=== PATIENT | male | born 1945 | race Caucasian/White ===

== ENCOUNTER → 2017-04-13 | Outpatient (CLI) | payer MEDICARE, OTHER ==
[~2017-04-13] MED LIST: ECOTRIN325 MG PO; LEVOTHROID(SYN75 MCG PO; LOPRESSOR50 MG PO
== END | disposition disaster alternative care site (69) ==
LOC: GRAD 10:11
DX: R13.19 Other dysphagia (principal)
CPT/HCPCS: G8996; G8997; G8998

== ENCOUNTER 2017-04-16 09:23 | Inpatient (IN) | payer MEDICARE, OTHER ==
[~2017-04-16] VITALS: Ht 180.3 cm; Wt 82.8 kg
--- NOTE | ~2017-04-16 | CON ---
PATIENT'S NAME: TARA SANCHEZ [facility] AGE: 71 Y [address] ROOM: [place] [address] LOCATION: GICU ADMIT DATE: 04/16/2017 Consultation DISCHARGE DATE: FAMILY PHYSICIAN: Glenn Mccoy MD ATTENDING PHYSICIAN: Bro PRICE REFERRING PHYSICIAN: Torito MEDEIROS MD Consult for Dr. Medeiros, hospitalist. HISTORY OF PRESENT ILLNESS: This pleasant 71-year-old gentleman is referred for rehab evaluation, admitted on 04/16/2017, reportedly was unresponsive and was airlifted to [facility] after CPR with aspiration and aspiration pneumonia. He has had history of laryngeal laceration with dysfunctional larynx, status post laryngeal cancer. He is also status post tracheostomy on 04/16/2017 and also has had a bronchoscopy on 04/16/2017 with flexible bronchoscopy. He also has recent PEG tube placement. Diabetes type 2. Hypertension. 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 At the present time, he is alert. Fairly able to follow instructions without difficulty. Multiple stage of instructions and at the present time he is in intensive care unit and not in acute distress. Able to interact well. VITAL SIGNS: Blood pressure 153/75, temperature 98.3, pulse 93, respirations 20. He is 5 feet and 11 inches and weighs 102.5 kg. Cranial nerves II through XII are within normal limits. Cannot talk. He is able to comprehend very well and to the point, is using also oxygen per nasal cannula at the present time. He seemingly is slightly weaker on the right side, especially right upper extremity in comparison to the left; however, he is otherwise comfortable with a Denny catheter. Deep tendon reflexes are present and equal throughout. He is on the following medication, 1. Lovenox. 2. Prevacid. 3. Synthroid. 4. Dobutrex. PATIENT'S NAME: TARA SANCHEZ [facility] AGE: 71 Y [address] ROOM: [place] [address] LOCATION: [facility] ADMIT DATE: 04/16/2017 Consultation DISCHARGE DATE: FAMILY PHYSICIAN: Glenn Mccoy MD ATTENDING PHYSICIAN: Bro PRICE 5. NaCl 0.9%. 6. Albuterol. 7. Omkar-Synephrine. 8. Dextrose 5%. 9. Pitressin. 10. Insulin regular, mild. 11. Glucagon. 12. Glucose. 13. Dextrose. 14. Tylenol. 15. Protonix. So far he could take 5 feet gait ambulation x3 with front-wheeled walker and minimum assistance of one with repeated cueing. I feel this gentleman will require intensive rehabilitation after he is stable. I will continue him on PT, OT, which has been already initiated. Please see the orders. I will also add speech therapy to his therapies and I will follow on him closely when he is stable, provided he is okayed by the admitting physician. I will take him for intensive rehabilitation for about 3 weeks, aiming to discharge on modified independence. All the above was explained to him. He nodded understanding. Thank you for this referral. MD PAOLA MESSER/modl /[id number] d: 04/21/17 1458 t: 04/21/17 1635, CONSULTATION REPORT
--- NOTE | ~2017-04-16 | CON ---
PATIENT'S NAME: TARA SANCHEZ [facility] AGE: 71 Y [address] ROOM: [place] [address] LOCATION: GI ADMIT DATE: 04/16/2017 Consultation DISCHARGE DATE: FAMILY PHYSICIAN: Glenn Mccoy MD ATTENDING PHYSICIAN: Bro PRICE REFERRING PHYSICIAN: Torito KEANE MD CHIEF COMPLAINT: 1. Post respiratory arrest. 2. Tracheostomy. HISTORY OF PRESENT ILLNESS: The patient is a pleasant 71-year-old male, known to me from outpatient visits in the last 2 weeks. He presented to me as an outpatient with a history of laryngeal cancer status post chemoradiation performed roughly [address] Jed Alvarez in [place]. By the time I met him, he was having progressive issues of hoarseness, dysphagia as well as coughing and choking. I suspected he had dysfunctional larynx from the radiation and a swallow study was ordered which confirmed this showing significant aspiration with all consistencies, and he was recommended to be n.p.o. He did not change his diet recommendations, and upon my followup phone call with him, he was seeking more information. We had a phone call with him on Tuesday where we discussed multiple options, including laryngectomy and ultimately decided to follow up with him today in clinic. Unfortunately, he did not make it today as the events in this weekend unfolded carried out in other notes. I am aware of the recent history including respiratory distress requiring CPR attempts, ultimately intubation with the pediatric endotracheal tube and finally tracheostomy performed by General Surgery over the weekend. He is now ventilator dependent with an NG tube in place. He has been moved to CPAP and is starting to improve somewhat in his pulmonary function. He is awake and alert at this time, and he and his daughter respond to my questions appropriately. There is some question of how to proceed now. PAST MEDICAL HISTORY: History of hypertension, diabetes mellitus type 2, and laryngeal cancer. MEDICATIONS: Hospital medications were reviewed and available in the chart. ALLERGIES: REVIEWED AND AVAILABLE IN THE CHART. FAMILY HISTORY: Mother is with a history of diabetes mellitus type 2. SOCIAL HISTORY: PATIENT'S NAME: TARA SANCHEZ [facility] AGE: 71 Y [address] ROOM: [place] [address] LOCATION: GICU ADMIT DATE: 04/16/2017 Consultation DISCHARGE DATE: FAMILY PHYSICIAN: Glenn Mccoy MD ATTENDING PHYSICIAN: Bro PRICE He is not a significant drinker, but previously heavy smoker, but quit 10 years ago at his original diagnosis. 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 REVIEW OF SYSTEMS: A 10-point review of systems was performed negative except as per the HPI. PHYSICAL EXAMINATION: VITAL SIGNS: Temperature 99.0, pulse 87, respiratory rate 17, and blood pressure 105/54. GENERAL: This is a well-appearing male, lying comfortably in the ICU with a ventilator attached to his tracheostomy tube. He is responsive and writes questions to me appropriately. He appears in no distress. EARS: Auditory canals are clear. Nose: No nasal airflow right now secondary to the ventilator on the tracheostomy tube. No significant rhinorrhea. NG is put in place on the right. Oral cavity, mucous membranes moist. Tongue midline and mobile. Oropharynx patent. NECK: There is no palpable lymphadenopathy or masses. An 8.0 DCT tracheostomy tube was in place with a nicely healing stoma. The ventilator is appropriately attached and the balloon is up. There was no apparent cuff leak. ASSESSMENT: 1. History of laryngeal radiation now with dysfunctional larynx. 2. Recent respiratory arrest. 3. Recent aspiration. 4. Chronic aspiration. PLAN: We had a long discussion regarding his options. I have recommended consideration of laryngectomy with possible free flap given his history of radiation which would be performed in [place]. I also gave him the option of proceeding with tracheostomy dependent life which will have a much higher risk of continued aspiration and other problems. We went over all of these pros and cons thoroughly and all of the questions were answered by him and his daughter. In the end, he showed interest in meeting with Dr. Alvarez again to discuss further and I will be in contact with him. In the meantime, he will proceed with PEG placement with Dr. Sebastian. Continue weaning his ventilator as appropriate over this week and get his pulmonary health in order. He will ultimately see Dr. Alvarez as an outpatient and I will help to coordinate this. LUIZ AGUILAR MD PATIENT'S NAME: TARA SANCHEZ [facility] AGE: 71 Y [address] ROOM: [address] [address] LOCATION: [facility] ADMIT DATE: 04/16/2017 Consultation DISCHARGE DATE: FAMILY PHYSICIAN: Glenn Mccoy MD ATTENDING PHYSICIAN: Bro PRICE /[id number] CC: MD Torito Rodriguez MD David E Cantral, MD Jeffrey T Merz, MD d: 04/18/17 1851 t: 04/28/17 0729, CONSULTATION REPORT
--- NOTE | ~2017-04-16 | ER ---
PATIENT'S NAME: TARA SANCHEZ [facility] AGE: 71 Y [address] ROOM: [place] [address] LOCATION: GICU ADMIT DATE: 04/16/2017 ER/Outpatient Report DISCHARGE DATE: FAMILY PHYSICIAN: Glenn Mccoy MD ATTENDING PHYSICIAN: Bro PRICE Time of Arrival: 0923 hours. Time of Evaluation/Seen: 0923 hours. IDENTIFICATION: A 71-year-old male. CHIEF COMPLAINT: Post code. HISTORY OF PRESENT ILLNESS: The patient is a 71-year-old male who was brought by [facility] from [place]. History was obtained from the flight nurses. Later some history was obtained from the family, but initially all history was obtained from the flight nurses and Dr. Bach. The patient is a 71-year-old male who recently had a barium swallow study revealing aspiration. He has some sort of head and neck or esophageal cancer and has had some radiation therapy. He called his daughter this morning stating he was short of breath. When she went over there, he was unresponsive, called 911 and so he had a witnessed arrest. He had two rounds of CPR per the Ramos device. The AED advised no shock. He had return of spontaneous circulation, and was evaluated briefly in [place] and sent here for Cardiology for Dr. Bach. PAST MEDICAL HISTORY: ALLERGIES: WE KNOW OF ARE TO ZINC. MEDICATIONS: 1. Aspirin 325 mg daily. 2. Levothyroxine 88 mcg daily. 3. Metoprolol 50 mg daily. MEDICAL PROBLEMS: 1. 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 He has had some recent dysphagia and on April 13 had a barium swallow showing aspiration. Family later then did comment that the patient has had some problems with hypoxia, but has refused oxygen. PATIENT'S NAME: TARA SANCHEZ [facility] AGE: 71 Y [address] ROOM: [place] [address] LOCATION: GICU ADMIT DATE: 04/16/2017 ER/Outpatient Report DISCHARGE DATE: FAMILY PHYSICIAN: Glenn Mccoy MD ATTENDING PHYSICIAN: Bro PRICE 2. Other medical problems include: Triple A. 3. Benign carcinoid tumor of the sigmoid colon. PAST SURGICAL HISTORY: Prior Surgeries: Unknown. FAMILY HISTORY: Unknown. REVIEW OF SYSTEMS: Unable to obtain from the patient. PHYSICAL EXAMINATION: The patient arrived from [facility]. When he left [place], he did have a blood pressure of 180. They gave him 2 mg of Versed just prior to leaving [place] and en route, they were not able to obtain a blood pressure. He does have a pulse, heart rate is 76, and sats were 75% on the vent. It was 100% FiO2. Initial blood pressure x2 unable to obtain. EMERGENCY DEPARTMENT COURSE: The patient was on his second liter of IV fluids. An additional IV site was obtained. Third liter of IV fluids and Levophed were initiated. Dr. Bach was at the bedside. A 12-lead EKG was immediately done revealing normal sinus rhythm at 77 beats per minute. No acute ST elevation or depression. Ventilatory Therapy was managing the ventilator. D-dimer was elevated at 9.66. Hemoglobin 15.7, hematocrit 55.6, platelets 195,000, white count 18, 78% segs, and 11% bands. Procalcitonin is 0.07. Blood cultures x2 have been drawn. A bedside echocardiogram was done per Dr. Bach's recommendation and Dr. Mix, high school music instructor was consulted for civil engineer's aide and pulmonology cares. She did evaluate the patient in the emergency room. With the third liter of IV fluids and Levophed, the patient's blood pressure did improve to 130s to 140s. He would open his eyes and follow commands. Zosyn and vancomycin were given as well as fentanyl. DIAGNOSTIC DATA: Findings: Chest x-ray shows complete opacification of the right lung. IMPRESSION AND PLAN: 1. Acute respiratory failure. 2. Right-sided suspected aspiration pneumonia. 3. On exam of his abdomen, he has a large ventral hernia. 4. Head and neck cancer. He was a difficult intubation in [place] with only a 6-0 ET tube. The patient has had some dysphagia recently. Dr. Mix, high school music instructor has requested ENT consultation. She spoke with Dr. Traylor, surgical consultation for tracheostomy in the operating room, a PATIENT'S NAME: TARA SANCHEZ [facility] AGE: 71 Y [address] ROOM: [id number] [place], [place] [address] LOCATION: GICU ADMIT DATE: 04/16/2017 ER/Outpatient Report DISCHARGE DATE: FAMILY PHYSICIAN: Glenn Mccoy MD ATTENDING PHYSICIAN: Bro PRICE bronchoscopy in the operating room, and Dr. Bach provide Cardiology recommendations. The patient arrived at [address] Mix arrived at 1000 hours. 40 minutes of critical care was provided with this patient. ALYCIA MARQUEZ MD CAR/modl /[id number] d: 04/16/17 1429 t: 04/18/17 2044, OUTPATIENT REPORT
--- NOTE | ~2017-04-16 | ECHO ---
Transthoracic Echocardiography Report (TTE) Demographics Patient Name TARA SANCHEZ Date of Study 04/16/2017 Patient Number [id number] Visit Number [id number] Date of 1945 Room Number Gender Male Number Age 71 year(s) Referring Newspaper Managing Editor Joann RVT, RDCS Physician Tsering Physician Interpreting Isreal Baker MD Electric Power Machine Operator Physician Supervising Ordering Isreal Baker MD, MD/MLP Physician Nurse Stress Sales Designer Conclusions Summary Off axis views and TDS. The estimated left ventricular ejection fraction is 50%.Flattened septum during systole and diastole consistent with pressure and volume overload of the right ventricle.Normal internal dimension.WMAs are difficult to comment on.Mild to moderate concentric left ventricular hypertrophy. Mildly dilated right ventricle with normal function. Increased RA pressures. The aortic valve is moderately sclerotic. Aortic velocity may be underestimated due to poor cardiac windows. Procedure Type of Study TTE procedure:2D Echocardiogram, M-Mode, Doppler , Color Doppler. Procedure Date Date: 04/16/2017 Start: 09:54 AM Study Location: ER Technical Quality: Adequate visualization Indications:Post Code. Appropriate Use Criteria: 9 Patient Status: STAT HR: 94 bpm BP: 94/47 mmHg M-Mode/2D Measurements Cardiac Output: 6.05 l/min LVOT: 2 cm LVOT VTI: 20.5 cm RV Base: 3 cm LV Stroke volume: 64.37 ml RV Mid: 3.22 cm RV Length: 6.64 cm TAPSE: 2.13 cm TDI-S': 12.6 cm/s Doppler Measurements AV Peak Velocity: 1.52 m/s MV Peak E-Wave: 0.59 m/s AV Peak Gradient: 9.24 mmHg MV Peak A-Wave: 0.97 m/s AV Mean Gradient: 6 mmHg MV E/A Ratio: 0.61 LVOT Peak Velocity: 0.84 m/s MV P1/2t: 78 msec PV Peak Velocity: 0.64 m/s PV Peak Gradient: 1.66 mmHg Findings Left Ventricle Mild concentric left ventricular hypertrophy with normal internal dimension and EF.WM cannot be confidently commented on. Right Ventricle Mildly dilated right ventricle with normal function. Left Atrium Normal left atrial size. Right Atrium Right atrium not well visualized. Mitral Valve Normal mitral valve structure and function. Aortic Valve The aortic valve is moderately sclerotic. Aortic velocity may be underestimated due to poor cardiac windows. Tricuspid Valve Normal tricuspid valve structure and function. Pulmonic Valve Normal pulmonic valve structure and function. Pericardial Effusion Trivial pericardial effusion. Miscellaneous Dilated IVC. Pleural Effusion No evidence of pleural effusion. Signature dtt: Olivia Bach dtd: 04/16/17 0954 Physician Self Edit
--- NOTE | ~2017-04-16 | OR ---
PATIENT'S NAME: TARA SANCHEZ [facility] AGE: 71 Y [address] ROOM: [place] [address] LOCATION: GICU ADMIT DATE: 04/16/2017 OR/Procedure Report DISCHARGE DATE: FAMILY PHYSICIAN: Glenn Mccoy MD ATTENDING PHYSICIAN: Bro PRICE SURGEON: Lakeisha Zamarripa MD [employer] OFFICER: DATE OF PROCEDURE: 04/16/2017 PROCEDURE PERFORMED: Point of care lung ultrasound. Right side shows no effusion, a few B-lines, no rocket signs, it is mostly A- lines. Consolidation/hepatization at the lung bases. Left side grossly A- lines, no signs of congestion, positive lung sliding. Cardiac ultrasound shows good LV function. No pericardial effusion. RV forms a part of this apex which suggests RV dilatation. IVC shows respiratory variation, size approximately 2 cm. Abdomen, no free fluid. Bladder full with Denny in. Time of point of care ultrasound was 12 p.m. LAKEISHA ZAMARRIPA MD MG/modl /[id number] d: 04/16/171835 t: 04/21/17 1631, OPERATIVE SUMMARY
--- NOTE | ~2017-04-16 | HP ---
PATIENT'S NAME: TARA SANCHEZ [facility] AGE: 71 Y [address] ROOM: [address] [address] LOCATION: [facility] ADMIT DATE: 04/16/2017 History & Physical DISCHARGE DATE: FAMILY PHYSICIAN: Glenn Mccoy MD ATTENDING PHYSICIAN: Bro PRICE DATE OF SERVICE: CHIEF COMPLAINT: Septic shock. HISTORY OF PRESENT ILLNESS: The patient is a 71-year-old gentleman with past medical history of hypertension, diabetes mellitus type 2, history of laryngeal cancer status post resection, chemo and radiation, who presents here from [facility] with post code status. History is obtained from family. The patient is a 71- year-old male who has recently been noted to have aspiration. He had barium swallowing study revealing aspiration. He has history of laryngeal cancer status post chemotherapy and radiation and surgical resection and has had recent CT that showed possible mass around the vocal cord. The patient was scheduled to see ENT next week for further evaluation. However, the patient called his daughter because of worsening of shortness of breath. When daughter went there, he was found unresponsive and 911 was called. The patient had two rounds of CPR without shock or medication. The patient returned to response circulation. He was transferred to [facility] for further care. In [facility], the patient was found to be in hypoxic respiratory failure. The patient was a difficult intubation. The patient had oral intubation and brought here for further evaluation for pulse code. The patient was seen in the emergency department and was found to be in hypertensive. Chest x-ray shows whiteout of right lung henry. The patient was started on antibiotics and was given 3 liters of IV fluid and had emergent tracheostomy. The patient tolerated tracheostomy. During tracheostomy, the patient had bronchoscopy done with removal of mucus plug. AP chest x-ray shows some improvement of right-sided whiteout. The patient was transferred to our ICU for further care. The patient has a history of smoking and has stopped smoking 10 years ago. According to family member, the patient does not have any recent history of chest pain, abdominal pain, nausea, vomiting, and diarrhea. MEDICAL HISTORY: Hypertension, diabetes mellitus type 2, history of laryngeal cancer. SURGICAL HISTORY: PATIENT'S NAME: TARA SANCHEZ [facility] AGE: 71 Y [address] ROOM: [address] [address] LOCATION: [facility] ADMIT DATE: 04/16/2017 History & Physical DISCHARGE DATE: FAMILY PHYSICIAN: Glenn Mccoy MD ATTENDING PHYSICIAN: Bro PRICE Port-A-Cath placement and laryngeal cancer resection. FAMILY HISTORY: Mother has history of diabetes mellitus type 2 and from intussusception. SOCIAL HISTORY: The patient has no history of drinking, stopped smoking 10 years ago. 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 MEDICATIONS: Currently being reconciled. REVIEW OF SYSTEMS: Were attempted to be acquired from family member. All negative except for what mentioned in the HPI. PHYSICAL EXAMINATION: VITAL SIGNS: Temperature 96.9, respiratory rate of 20, pulse of 83, blood pressure 118/55, saturating 85% on 100% FiO2. GENERAL APPEARANCE: The patient is lying on bed, trach to mechanical ventilation machine, unable to talk, in no acute distress. HEAD: Normocephalic, atraumatic. EYES: Extraocular muscle intact. NOSE: No nasal discharge. EARS: No ear discharge. NECK: Trach tube in place. CHEST: Decreased breath sounds in right lower lung field. Mild rales in bibasilar. HEART: Regular rate and rhythm. No murmurs, rubs, or gallops. ABDOMEN: Soft. Nontender and nondistended. SKIN: Warm to touch. EXTREMITIES: Pitting edema bilaterally to lower extremities. PIPELINE DISPATCH OPERATOR: The patient alert and awake, moves all extremities. LABORATORY DATA: Lactate of 2.4, pH 7.2, pCO2 89, PO2 of 32, and bicarb of 34.8. Repeat ABG after mechanical ventilation and trach was pH of 7.2, pCO2 75, bicarb of 30, and PO2 of 55. Troponin 0.055, proBNP of 4684, white blood cell count of 18, hemoglobin of 15.7, and platelet of 195 with 11% band. Sodium of 148, potassium of 3.8, glucose of 157 and calcium of 7.4, creatinine of 1.1, and alkaline phosphatase of 65, AST of 20 and ALT of 15, magnesium of 1.5, albumin of 2.2. INR of 1.37, pro-time of 14.4. PATIENT'S NAME: TARA SANCHEZ [facility] AGE: 71 Y [address] ROOM: [address] [place], [place] [address] LOCATION: [facility] ADMIT DATE: 04/16/2017 History & Physical DISCHARGE DATE: FAMILY PHYSICIAN: Glenn Mccoy MD ATTENDING PHYSICIAN: Bro PRICE Initial chest x-ray shows right-sided opacity. Repeat chest x-ray shows tracheostomy tube is in place, the right Port-A-Cath device and NG tube stable and slight improvement of aeration of the right upper lung with persistent opacity of right lower lung. PROBLEMS: 1. Septic shock. Etiology most likely secondary to aspiration pneumonia. The patient is currently on vancomycin and Zosyn. Blood culture and sputum culture taken. We will await for blood culture and sputum culture. The patient has received a total of closed to 4 L of IV fluids and currently on Levophed. To continue fluid of 100 mL an hour and pressor support. To wean off pressure support as needed. Also elevated lactate 2, trend lactate every 6 hours until normalized, hourly urine output. 2. Acute hypoxic and hypercapnic respiratory failure. Etiology secondary to history of multiple aspiration with aspiration pneumonia and mucus plugging, status post bronchoscopy with mucus plug removal. Treating pneumonia with antibiotics as stated above. Repeat ABG showing some improvement. However, the patient is on PEEP of 12 and FiO2 of 10, saturating with PaO2 of 55. Discussed with Dr. Mix to keep O2 sats above 88. I suspect the patient might also have chronic hypercapnic respiratory failure and also chronic hypoxic respiratory failure secondary to long standing tobacco use. Also can be seen on echocardiogram, showing right ventricle and right atrium overload due to most likely secondary to increased pulmonary pressure. For now we will continue with IV fluid and with oxygenation ventilation through mechanical ventilator. Pulmonology Dr. Mix on board. D-dimer was noted to be elevated. Due to history of cancer and hypoxic respiratory failure, despite intervention with bronchoscopy, there is suspicious for pulmonary embolism. We will acquire CT chest PE protocol to rule out PE. Risk and benefits were discussed with family in terms of IV contrast use pertaining to kidney failure. Family agreed and understands the risk and benefit. To acquire his CT chest with contrast for further evaluation of PE. 3. Cardiac arrest, status post two rounds of CPR, etiology most likely secondary to hypoxic respiratory failure and metabolic risk, acute respiratory acidosis. Troponin was noted to be mildly elevated. However, this is most likely secondary to NSTEMI type 2 due secondary to demand. We will trend troponin. Cardiology on board. Dr. Bright has done the patient's echo, it shows 50% EF of left ventricular. No wall motion abnormality seen except for right-sided dilation. We will follow clinically. The patient denies chest pain. 4. Diabetes mellitus type 2. The patient currently n.p.o. We will put on sliding scale insulin. PATIENT'S NAME: TARA SANCHEZ [facility] AGE: 71 Y [address] ROOM: [address] [address] LOCATION: [facility] ADMIT DATE: 04/16/2017 History & Physical DISCHARGE DATE: FAMILY PHYSICIAN: Glenn Mccoy MD ATTENDING PHYSICIAN: Bro PRICE 5. NSTEMI type 2. 6. History of laryngeal cancer status post resection. PLAN AND ASSESSMENT: Recently, there was possible mass seen in two vocal cords, imaging done as an outpatient. Patient's supposed to see ENT as an outpatient. During tracheostomy, laryngoscopy was attempted by surgery and no obvious malignancy was seen. However, when the patient is stable at home septic shock and respiratory failure to re-evaluate laryngeal mass or possible laryngeal mass. Greater than 30 minutes critical care was spent on the patient. Assessment and plan was discussed with Dr. Mix, pulmonology usps letter carrier and family member. Code status was discussed on admission, code status full code. MD JANICE NOBLE/danya /[id number] D: [id number] T: HISTORY & PHYSICAL
--- NOTE | ~2017-04-16 | ECHO ---
Transthoracic Echocardiography Report (TTE) Demographics Patient Name TARA SANCHEZ Date of Study 04/27/2017 Patient Number [id number] Visit Number [id number] Date of 1945 Room Number G6309 Gender Male Number Age 71 year(s) Referring Isreal Baker Flux Tube Attendant Radha Loera RDCS, Physician RVT Nadine Marroquin MD Physician Interpreting Isreal Baker Administrative Assistant Front Desk Physician Supervising Ordering Isreal Baker MD/MLP Physician Nurse Stress Health Care Aide Conclusions Summary The estimated left ventricular ejection fraction is 50% with normal WM,wall thickness and internal dimension. Mild mitral regurgitation by color Doppler. Mild mitral annular calcification. There is mild aortic regurgitation by color Doppler. Mild tricuspid regurgitation by color Doppler. Compared to study dated 04/16/2017 the right sided abnormalities have resolved. There is mild pulmonary hypertension. The pulmonary pressure (RVSP) is 47 mmHg. Mild pulmonic valve regurgitation by color Doppler. Procedure Type of Study TTE procedure:2D Echocardiogram. Procedure Date Date: 04/27/2017 Start: 03:17 PM Study Location: Inpatient Portable Technical Quality: Fair Indications:Edema and Dyspnea/SOB. Patient Status: Routine Amount - 9 ml Rhythm: Atrial fibrillation HR: 86 bpm BP: 131/63 mmHg M-Mode/2D Measurements LV Diastolic Dimension: 4.39 cm LV Systolic Dimension: 2.18 cm LV Septum Diastolic: 0.8 cm LV PW Diastolic: 0.8 cm AO Root Dimension: 2 cm Cardiac Output: 6.64 l/min AV Cusp Separation: 0.6 cm RV Diastolic Dimension: 0.8 cm LA volume: 49 ml IVC Inspiration: 0.8 cm LVOT: 2.1 cm RV Base: 3.19 cm LVOT VTI: 22.3 cm RV Mid: 2.49 cm LV Stroke volume: 77.2 ml TAPSE: 2.13 cm TDI-S': 17 cm/s Doppler Measurements AV Peak Velocity: 2.66 m/s MV Peak E-Wave: 0.83 m/s AV Peak Gradient: 28.3 mmHg MV Peak A-Wave: 1.17 m/s AV Mean Gradient: 13.75 mmHg MV E/A Ratio: 0.71 LVOT Peak Velocity: 1.22 m/s MV P1/2t: 76 msec AV P1/2t: 548 msec MV Deceleration Time: 236 msec TR Gradient:44.89 mmHg PV Peak Velocity: 1.26 m/s Estimated RAP:3 mmHg PV Peak Gradient: 6.35 mmHg Estimated RVSP: 48 mmHg Estimated PASP: 47.89 mmHg E' Septal Velocity: 0.07 m/s A' Septal Velocity: 0.11 m/s E' Lateral Velocity: 0.11 m/s A' Lateral Velocity: 0.22 m/s Findings Left Ventricle The estimated left ventricular ejection fraction is 50% with normal WM ,wall thickness and internal dimension. Right Ventricle Normal right ventricle structure and function. Left Atrium Normal left atrial size. Right Atrium Normal right atrial size. Mitral Valve Mild mitral regurgitation by color Doppler. Mild mitral annular calcification. Aortic Valve Moderate aortic sclerosis with moderate restriction of motion.Peak velocity across the aortic valve is 2.7 m/sec.P mm Hg and M mm Mild AR. Tricuspid Valve Mild tricuspid regurgitation by color Doppler. The tricuspid valve is not well visualized. There is mild pulmonary hypertension. The pulmonary pressure (RVSP) is 47 mmHg. Pulmonic Valve Mild pulmonic valve regurgitation by color Doppler. The pulmonic valve is not well visualized. Pericardial Effusion Small circumferential pericardial effusion. Miscellaneous Visualized portions of the aortic root and ascending aorta appear normal in size. Pleural Effusion No evidence of pleural effusion. Contractility Score LV regional wall motion:(0-Non visualized 1-Normal 2-Hypokinesis 3-Akinesis 4-Dyskinesis 5-Aneurysm) Signature dtt: Olivia Bach dtd: 04/27/17 1517 Physician Self Edit
--- NOTE | ~2017-04-16 | CON ---
PATIENT'S NAME: TARA SANCHEZ [facility] AGE: 71 Y [address] ROOM: [place] [address] LOCATION: [facility] ADMIT DATE: 04/16/2017 Consultation DISCHARGE DATE: FAMILY PHYSICIAN: Glenn Mccoy MD ATTENDING PHYSICIAN: Bro PRICE DATE OF CONSULTATION: 04/16/2017 This is a consult by Pulmonology for evaluation of the patient in the emergency department. HISTORY OF PRESENT ILLNESS: This is a 71-year-old male who sustained a cardiopulmonary arrest at home involving several minutes of cardiopulmonary resuscitation. The patient had recovered vitals and was intubated with difficult with 6.0 endotracheal tube and transferred to [facility] for further evaluation. His limited history is provided from the family. PAST MEDICAL HISTORY: His past medical history significant for laryngeal cancer treated with surgical resection and adjuvant chemotherapy and radiation to the neck, who is being worked up by ENT surgeon for possible recurrence and had an appointment scheduled for Tuesday. ALLERGIES: HIS ALLERGIES ARE UNKNOWN. HE IS FULL CODE. PHYSICAL EXAMINATION: VITAL SIGNS: His systolic blood pressure 90 to 100, his saturations are 90 on a 100% FiO2. He is on a vent. GENERAL: He has RASS score of -1. He can weakly follow commands and open eyes to voice. HEENT: His head and neck exam shows a scar in his neck from previous tracheostomy. His oropharynx was not evaluated with tube loo in place. He has orogastric tube in place. We were able extend his neck somewhat and get adequate view of his external landmarks of his trachea. He has right subcutaneous port which has been accessed with Thacker needle and is functional. He has diminished right-sided breath sounds with again a symmetric wall exertion. ABDOMEN: Soft and nontender as far as I can evaluate. He does have a reducible ventral hernia through a complex abdominal wall defect just in the periumbilical region. PATIENT'S NAME: TARA SANCHEZ [facility] AGE: 71 Y [address] ROOM: [place] [address] LOCATION: [facility] ADMIT DATE: 04/16/2017 Consultation DISCHARGE DATE: FAMILY PHYSICIAN: Glenn Mccoy MD ATTENDING PHYSICIAN: Bro PRICE Patient's labs were reviewed as well as radiology images were reviewed. On his initial ABG, he had pH of 7.20 with pCO2 of 89, and pO2 of 32. His bicarb was 35. His base excess was 4. His initial lactate was 2.4. His white count was 18.0, his hemoglobin 15.7, his platelet count 195. He did have PT and PTT here that were grossly elevated with the PT of 35.4 and INR 3.33; however, this conflicts with similar labs obtained at the sending hospital which were normal. Those coags will be repeated and type and screen send just in case this reflects true values, my suspicion is low. IMPRESSION: My impression is, 1. Acute pulmonary failure. 2. Right lung parenchymal opacity by chest x-ray with a suspicion for aspiration. 3. Chronic ventral abdominal hernia. PLAN: Plan is for tracheostomy in the operating room with a subsequent therapeutic and diagnostic bronchoscopy by Pulmonary. Plan is discussed with pulmonary consult, the emergency room, and the on-call operative team. BRO PRICE MD CM/danya /[id number] d: 04/16/17 1229 t: 05/23/17 1449, CONSULTATION REPORT
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
--- NOTE | ~2017-04-16 | OR ---
PATIENT'S NAME: TARA SANCHEZ [facility] AGE: 71 Y [address] ROOM: [address] [place] [id number] LOCATION: [facility] ADMIT DATE: 04/16/2017 OR/Procedure Report DISCHARGE DATE: FAMILY PHYSICIAN: Glenn Mccoy MD ATTENDING PHYSICIAN: Bro KERR SURGEON: Bro Kerr MD ENTRY CLERK: DATE OF PROCEDURE: 04/16/2017 PREOPERATIVE DIAGNOSIS: Respiratory failure. POSTOPERATIVE DIAGNOSIS: Respiratory failure. OPERATION PERFORMED: Tracheostomy. ANESTHESIA: General endotracheal anesthesia. COUNTS: The sponge and needle counts at the end of the case were correct. COMPLICATIONS: None. Of note, this procedure was done in conjunction with a bronchoscopy which followed it in the operating room under the same anesthetic. Please refer to Dr. Mix's dictation for details of the bronchoscopy. DESCRIPTION OF PROCEDURE: After an informed consent was obtained, the patient was taken to the operating room. He arrived intubated, general anesthesia was administered. His neck was thoroughly prepped and draped with his neck extended on a shoulder roll underneath the shoulders. A surgical timeout was performed. External anatomy landmarks were identified. The distance from the thyroid cartilage to the suprasternal notch was somewhat short but was ameliorated with positioning. A vertical midline incision was made through the previous tracheostomy scar after administration of local anesthetic consisting of 4 mL of 0.5% Marcaine with epinephrine. Dissection was carried down through skin and subcutaneous tissues to identify the trachea. This dissection proceeded through extensive scar as a result of his previous tracheostomy and subsequent radiation. The trachea was identified. A flap incision was made at approximately of the third tracheal ring. The superiorly oriented trapdoor was secured with interrupted 2-0 Prolene. Through this trapdoor, an 8.0 Shiley trach was placed without difficulties. This was connected by an inner cannula to the anesthesia tubing. The patient was able to be ventilated through this tracheostomy. A single closing stitch of 2-0 nylon was used to secure the skin inferiorly after the balloon of the tracheostomy was inflated. The patient was in stable condition. He was handed over to Dr. Mix for performance of her bronchoscopy. Following that procedure, the patient was transferred to the ICU PATIENT'S NAME: TARA SANCHEZ [facility] AGE: 71 Y [address] ROOM: [address] [place] [id number] LOCATION: [facility] ADMIT DATE: 04/16/2017 OR/Procedure Report DISCHARGE DATE: FAMILY PHYSICIAN: Glenn Mccoy MD ATTENDING PHYSICIAN: Bro KERR in stable condition. A postoperative x-ray was obtained. BRO KERR MD CM/danya /[id number] d: 04/16/17 1604 t: 04/22/17 0720, OPERATIVE SUMMARY
--- NOTE | ~2017-04-16 | OR ---
PATIENT'S NAME: TARA SANCHEZ [facility] AGE: 71 Y [address] ROOM: [place] [address] LOCATION: GICU ADMIT DATE: 04/16/2017 OR/Procedure Report DISCHARGE DATE: FAMILY PHYSICIAN: Glenn Mccoy MD ATTENDING PHYSICIAN: Bro PRICE SURGEON: Emre Sebastian MD WIRELESS SALES CONSULTANT: DATE OF PROCEDURE: 04/19/2017 PREOPERATIVE DIAGNOSES: 1. 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 2. Abdominal wall hernia. POSTOPERATIVE DIAGNOSES: 1. 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 2. Abdominal wall hernia. PROCEDURE PERFORMED: EGD with PEG placement. ANESTHESIA: General with local. ESTIMATED BLOOD LOSS: 20 mL. SPECIMEN: None. REASON FOR PROCEDURE: The patient is a 71-year-old male, who was recently hospitalized after a respiratory arrest. He required an emergency tracheostomy. He has felt like he is in need of long-term enteral support. He was noted to have an abdominal wall hernia before hand. The risks and benefits were all discussed. PROCEDURE IN DETAIL: In the Intensive Care Unit, the patient was sedated by Anesthesia. He is already on the ventilator. Once adequately sedated, a gastroscope was advanced through the bite block and the esophagus was intubated under direct visualization. The scope was advanced down the esophagus. Stomach was insufflated and inspected. No abnormalities were seen. We were able to localize an area for PEG placement. The NG tube was then withdrawn. We then prepped the abdomen with ChloraPrep and sterilely draped it. Lidocaine was infiltrated into the area. A 1 cm stab incision was made at the area. We did have some moderate oozing of blood from the area. Pressure was then applied. A needle was then advanced through the abdominal wall and visualized entering the gastric mucosa. A guidewire was advanced through the guidewire. The guidewire was grasped with a snare and carefully withdrawn through the esophagus and oropharynx. The PEG tube was advanced over the guidewire and pulled into position. A bolster was used to hold this PATIENT'S NAME: TARA SANCHEZ [facility] AGE: 71 Y [address] ROOM: [place] [address] LOCATION: GICU ADMIT DATE: 04/16/2017 OR/Procedure Report DISCHARGE DATE: FAMILY PHYSICIAN: Glenn Mccoy MD ATTENDING PHYSICIAN: Bro PRICE in place. POSTPROCEDURE PLAN: The patient will have the PEG tube clamp for 8 hours. They can then resume previous tube feeds and gradually advance them as tolerated. MD AGATHA GARVIN/danya /[id number] d: 04/19/17 1450 t: 04/25/17 1939, OPERATIVE SUMMARY
--- NOTE | ~2017-04-16 | CON ---
PATIENT'S NAME: TARA SANCHEZ [facility] AGE: 71 Y [address] ROOM: [place] [address] LOCATION: [facility] ADMIT DATE: 04/16/2017 Consultation DISCHARGE DATE: FAMILY PHYSICIAN: Glenn Mccoy MD ATTENDING PHYSICIAN: Bro PRICE DATE OF CONSULTATION: 04/16/2017 CRITICAL CARE CONSULT NOTE HISTORY OF PRESENT ILLNESS: A 71-year-old male with history of laryngeal cancer, status post surgery and therapy 9 years ago, who was found be unresponsive by EMS this morning at home. After the medical records, the patient complained of dyspnea and he called his daughter. He required two rounds of chest compression, but no medications before obtaining return of spontaneous circulation. He was intubated with great difficult at [facility] with a size 6 ET tube. Previous record showed CT with adequate IV contrast done on 03/23/2017 with presence of nodular irregularity of true vocal cord suspicious of neoplasm. Family member stated he also developed aspirations lately and had significant weight loss. He was being planned for total laryngectomy by ENT and there was discussion and there is a followup appointment on the coming week. As per records, he did not have laryngoscopy done in last 2 years. Chest x-ray on arrival showed complete right-sided atelectases. His saturations were below 70s. ABG showed pH of 7.2, pCO2 89 with pO2 32. Cardiology was consulted. There were no significant ST-T changes in EKG. Bedside echo showed good airway function. ALLERGIES: ZINC. PAST MEDICAL HISTORY: Laryngeal cancer. PAST SURGICAL HISTORY: Surgery for laryngeal cancer 9 years ago with probable radiation. PHYSICAL EXAMINATION: VITAL SIGNS: Pulse in between 80s to mid 90s, blood pressure 110s/60s on Levo 0.1 mcg/kg/min, saturations are in between low 80s as high as 92%. BARREL POLISHER: Prior to starting sedation, he responded to verbal commands appropriately. RESPIRATORY: Decreased air entry on the right side. CARDIOVASCULAR: Regular S1 and S2. ABDOMEN: Soft. There was reducible mass on the left side. PATIENT'S NAME: TARA SANCHEZ [facility] AGE: 71 Y [address] ROOM: [address] [place] [id number] LOCATION: GNTU ADMIT DATE: 04/16/2017 Consultation DISCHARGE DATE: FAMILY PHYSICIAN: Glenn Mccoy MD ATTENDING PHYSICIAN: Bro PRICE EXTREMITIES: No edema. LABORATORY DATA: At [facility], CBC, WBC was 17.6, hemoglobin 18, hematocrit 65, and platelet 183. CMP: Sodium 144, potassium 4.3, chloride 97, bicarbonate 34, BUN 19, and creatinine 0.9. Coagulation PT 14, INR 1.4, PTT 25. At [facility], the coagulation profile was deranged with PTT 36, PT 35, and INR 3.3. ABG; pH 7.2, pCO2 89, pO2 32, troponin 0.55. Chest x-ray showed complete right-sided atelectasis. Procalcitonin was 0.07. PROBLEM LIST: 1. Acute on chronic hypoxic and hypercapnic respiratory failure secondary to aspiration, recurrence of laryngeal cancer. 2. Hypertension probably secondary to septic shock, secondary to aspiration pneumonia. 3. Right lung atelectasis. 4. Troponinemia secondary to demand ischemia. 5. Suspected DIC. ASSESSMENT AND PLAN: 1. BARREL POLISHER: Metal status is appropriate. He followed all the commands. He was initiated on propofol for sedation. 2. Cardiovascular: Received total 3 liters of saline and Levophed 0.1 mcg/kg/min. Bedside echo showed good healthy function. Last troponin was 0.07, probably likely to demand ischemia. EKG did not show any significant ST-T changes. 3. Respiratory: Acute on chronic hypoxic respiratory failure, status intubation with complete right lung atelectasis, will require emergent tracheostomy and bronchoscopy. We will keep on assist control. 4. GI: Will need PEG for chronic aspiration. We will keep him n.p.o. For now. 5. Infectious Disease: Suspected septic shock secondary to aspiration pneumonia, although we ensure procalcitonin level is low. We will start on vanc and Zosyn after sending blood cultures and sputum cultures. 6. Deep venous thrombosis prophylaxis: Venodyne boots for now. Coagulation profile was deranged. We will start on heparin subcutaneously, once the coagulation profile improves. Critical care time spent is 60 minutes. LAKEISHA ZAMARRIPA MD PATIENT'S NAME: TARA SANCHEZ [facility] AGE: 71 Y [address] ROOM: [place] [address] LOCATION: [facility] ADMIT DATE: 04/16/2017 Consultation DISCHARGE DATE: FAMILY PHYSICIAN: Glenn Mccoy MD ATTENDING PHYSICIAN: Bro PRICE /[id number] d: 04/16/17 1333 t: 04/21/17 1626, CONSULTATION REPORT
--- NOTE | ~2017-04-16 | DS ---
PATIENT'S NAME: TARA SANCHEZ [facility] AGE: 71 Y [address] ROOM: [place] [address] LOCATION: GPCU ADMIT DATE: 04/16/2017 Discharge Summary DISCHARGE DATE: 05/05/2017 FAMILY PHYSICIAN: Glenn Mccoy MD ATTENDING PHYSICIAN: João Mix FINAL DIAGNOSES: 1. Acute hypoxic hypercapnic respiratory failure, status post code blue. 2. Aspiration pneumonia. 3. Klebsiella pneumoniae. 4. Protein-calorie malnutrition. 5. Laryngeal cancer. 6. Diabetes mellitus type 2. 7. Acute on chronic diastolic congestive heart failure. 8. Septic shock. PROCEDURES: On April 21, he had a right femoral central line placement by Dr. Mix. On April 21, bronchoscopy by Dr. Mix. He had an emergent trach placed by Dr. Kerr on April 16. PEG placement on April [address] Sebastian. He had a right thoracentesis on April 26, 2017. He had a left thoracentesis on April 27, 2017. These were done by Radiology. Bronchoscopy on by Dr. Disla. REASON FOR HOSPITALIZATION: The patient was presented to our hospital from [place] after presenting there as a Code Blue. He had called his daughter because he was having increasing difficulty swallowing and was much more short of breath. When she arrived, he was found unresponsive. He was taken due to the [facility] and successfully coded and then subsequently transferred here for higher level of care. LABORATORY DATA: On admission, pH was 7.20, pCO2 of 89, and pO2 of 32. Sodium values, on admission was 148, most prior to discharge was 139. Potassium on admission was 3.8, got as low as 2.7 on the , most prior to discharge was 4.1. Chloride on admission was 110 got as high as 112 and at discharge 101. CO2 on admission was 29, most prior to discharge was 34. BUN on admission was 17 and at discharge 19. Creatinine on admission was 1.1, got as high as 1.5, most prior to discharge was 0.9. Liver enzymes were normal throughout the hospital stay. Magnesium on admission was 1.5 as low as 1.3 on the 6th and at discharge was 2.3. Troponin on admission was 0.05. It did get as high as 0.144 but it did go down 0.121. ProBNP on the was 4684. Hemoglobin A1c was 6.5. White blood cell count on admission was 18, got as high as 20 and most prior to discharge was 8.9. Hemoglobin on admission was 15.7, most prior to discharge 13.1. Platelet count on admission was 195, got as low as 106 on the 8th and at discharge it was 320. D-dimer on admission was 9.66. Procalcitonin on admission was 0.07. Urinalysis on admission did PATIENT'S NAME: TARA SANCHEZ [facility] AGE: 71 Y [address] ROOM: [address] [address] LOCATION: GPCU ADMIT DATE: 04/16/2017 Discharge Summary DISCHARGE DATE: 05/05/2017 FAMILY PHYSICIAN: Glenn Mccoy MD ATTENDING PHYSICIAN: João Mix not show any evidence of infection. MICROBIOLOGY DATA: Only thing that was positive was a sputum culture from the that grew Klebsiella pneumoniae. PERTINENT X-RAY DATA: On admission, spiral cut CT scan was negative for pulmonary embolism, but he did have dense opacity throughout the right lung and to a less extent in the left lung. CT scan done on the did show no evidence of PE, but had dense lung consolidation in the right and left lower lobes. Chest x-ray on the did show that there had been significant improvement. CARDIOVASCULAR DATA: Echocardiogram returned showing that ejection fraction was 50%, had mild aortic regurgitation, and mild pulmonary hypertension. HOSPITAL COURSE: The patient was admitted into the intensive care unit. Pulmonary Critical Care was consulted and did help manage the patient. The patient was seen by Dr. Mix. Right central line was placed and she did feel the patient needed bronchoscopy. He was started on broad-spectrum antibiotics with vancomycin and Zosyn. He was placed on the sepsis protocol and felt that he did have sepsis. He did receive IV fluids. He was put on sliding scale insulin for his blood sugars. He did have arrhythmia for which he received digoxin to slow his heart rate. He was put on pressors to help support his blood pressure. He did show significant improvement. He did have to have the trach placed emergently on admission and all the other things happened after the trach was placed. He did continue to improve. His electrolytes were monitored and potassium and magnesium were replaced. He was given medications to slow his heart rate. Dr. Parks was asked to see him from the Ears, Nose and Throat standpoint because of his history of being seen by that group and an ongoing care with the trach. It was felt that he would we need to have a PEG. Dr. Sebastian was consulted and the PEG was placed without difficulty. On April 19, he was started on tube feeds. Because there was concern about his nutritional status, it was felt that he had been aspirating for a significant amount of time. The vancomycin was able to be discontinued. The plan was for him to stop the Zosyn at the end of the . He was seen by Dr. Hamlin to see if he is a candidate to go to rehab. Cardiology did follow along and felt that he needed diuresis. He was able to have the vent stopped. After the Zosyn was stopped, he was converted to oral Augmentin. He was able to be transferred to the floor. He did require Lasix drip to help mobilize some of the fluid. His kidney function and lytes were followed very closely during this time. On the , he was noted to still be having some fairly high oxygen requirements. X-rays had showed that he had pleural effusions. PATIENT'S NAME: TARA SANCHEZ [facility] AGE: 71 Y [address] ROOM: [id number] [place], [place] [address] LOCATION: GPCU ADMIT DATE: 04/16/2017 Discharge Summary DISCHARGE DATE: 05/05/2017 FAMILY PHYSICIAN: Glenn Mccoy MD ATTENDING PHYSICIAN: João Mix Radiology was asked to see him and evaluate for thoracentesis. He was having difficulty tolerating his tube feeds and we had to go very slowly in advancing them. Radiology did feel that there was evidence for thoracentesis. They did the right first and got 250 mL out. This was repeated the next day and he had on the left. When they did a left thoracentesis and removed significant amount of fluid. During this time frame, adjustments were made on his medicines to control his blood pressure. His blood sugar management was adjusted as his tube feed rates increased. After the thoracentesis, we were able to place back on his DVT prophylaxis, heparin doses. He did continue to have fairly high oxygen requirements, in fact, he is on high flow. He did receive Bumex on . However, he did not really have any improvement. Decision was made when his high-flow demands went from 50% to 100% to do a spiral-cut CT scan on the that did in fact show that he had significant pneumonia. Dr. Disla was consulted and he did do a bronchoscopy on the morning of the . In the meantime, Respiratory Therapy was very aggressive about trying to suction him. He was taken off the Augmentin and put on Rocephin. The sputum did in fact come back showing that he had Klebsiella. The bronchoscopy was performed. Postbronchoscopy, he was put back on the tube feeds and these were advanced. We were able to get him off the high-flow oxygen following the bronchoscopy. We also converted him to bolus tube feeds. He continued to improve and it was felt that he was stable to go to rehab. We were also able to get him off the IV antibiotics and placed him on Levaquin prior to transfer. DISCHARGE ORDERS TO REHAB: He is a full code. He is on Osmolite 1.5, 360 mL 5 times daily with 120 mL water flush before and after each bolus. He is weightbearing as tolerated. PT, OT and speech. He is 93% on 9 L trach mask. His blood sugars q.6. DISCHARGE MEDICATIONS: 1. Prevacid slurry 30 mg daily. 2. Aspirin 81 mg daily. 3. Lipitor 40 mg daily. 4. Zebeta 2.5 mg daily. 5. Lovenox 40 mg subcu. 6. Robitussin 600 mg per PEG twice daily. 7. Mild sliding scale insulin. 8. Synthroid 75 mcg daily. 9. Aldactone 12.5 mg daily. 10. Levaquin 500 mg through PEG through May 08. 11. DuoNeb every 4 hours as needed. 12. Tylenol 650 mg every 4 hours as needed. 13. Dextrose 25 mL for hypoglycemia. 14. Glucagon 1 mg subcu for hypoglycemia. 15. Glucose 16 g p.o. for hypoglycemia. PATIENT'S NAME: TARA SANCHEZ [facility] AGE: 71 Y [address] ROOM: [place] [address] LOCATION: GPCU ADMIT DATE: 04/16/2017 Discharge Summary DISCHARGE DATE: 05/05/2017 FAMILY PHYSICIAN: Glenn Mccoy MD ATTENDING PHYSICIAN: João Mix Overall prognosis at discharge is good. Ultimate plan from ENT is that he will have a laryngectomy and surgical procedure in about a month after he is recovered. This had been relayed to the daughter. KEY COATES MD LAW/modl /[id number] d: 05/06/17 0157 t: 05/13/17 1949, DISCHARGE SUMMARY
--- NOTE | ~2017-04-16 | OR ---
PATIENT'S NAME: TARA SANCHEZ [facility] AGE: 71 Y [address] ROOM: [place] [address] LOCATION: GICU ADMIT DATE: 04/16/2017 OR/Procedure Report DISCHARGE DATE: FAMILY PHYSICIAN: Glenn Mccoy MD ATTENDING PHYSICIAN: Bro PRICE SURGEON: Lakeisha Zamarripa MD CANDY POLISHER: DATE OF PROCEDURE: 04/16/2017 PROCEDURE: Bronchoscopy. Flexible bronchoscopy was done in the OR after obtaining appropriate consent, route through the tracheostomy tube size 8. INDICATION: Right-sided lung atelectasis. PROCEDURE DETAILS: The bronchoscope was passed through the ET tube without any difficulty. Bilateral tracheobronchial tree was examined up to subsegmental level. There is no gross mucosal abnormality. No endobronchial lesion. The bronchial tree is widely patent on the right side. There was no evidence of thick secretions or mucus plugging. Aspirated blood probably from the surgical site of the recent tracheostomy was seen in both left upper and left lower lobes. Postprocedure chest x-ray showed improved aeration of the right lung. The patient tolerated the procedure well. No immediate postoperative complications noted. LAKEISHA ZAMARRIPA MD MG/modl /[id number] d: 04/16/171831 t: 04/21/17 1633, OPERATIVE SUMMARY
--- NOTE | ~2017-04-16 | OR ---
PATIENT'S NAME: TARA SANCHEZ [facility] AGE: 71 Y [address] ROOM: [place] [address] LOCATION: GICU ADMIT DATE: 04/16/2017 OR/Procedure Report DISCHARGE DATE: FAMILY PHYSICIAN: Glenn Mccoy MD ATTENDING PHYSICIAN: Bro PRICE SURGEON: Jaky Mix MD POTTER OR CERAMIC ARTIST: DATE OF PROCEDURE: 04/16/2017 PROCEDURE: Right femoral central line. INDICATION: Vasopressor use. Consent obtained from the family after discussing the risks and benefits. PROCEDURE DETAILS: Right femoral central line was placed. Under aseptic precaution with ultrasound guidance. The area was anesthetized with 1% lidocaine. The finder needle was introduced under ultrasound guidance. After aspirating blood, the guidewire was passed through the finder needle. Position of the guidewire was confirmed with ultrasound before dilatation. The dilator was passed over the guidewire after making proper skin estefany and then a 20 cm central venous catheter was introduced. Blood was aspirated from all three ports without any difficulty. The catheter was secured to the skin using two sutures. Sterile dressing was applied. No immediate postprocedure complication was noted. MD URSULA MILLER/lisal /[id number] d: 04/16/17 1839 t: 04/21/17 1628, OPERATIVE SUMMARY
--- NOTE | ~2017-04-16 | CON ---
PATIENT'S NAME: TARA SANCHZE [facility] AGE: 71 Y [address] ROOM: [address] [place] [address] LOCATION: GPCU ADMIT DATE: 04/16/2017 Consultation DISCHARGE DATE: 05/05/2017 FAMILY PHYSICIAN: Glenn Mccoy MD ATTENDING PHYSICIAN: João Mix DATE OF CONSULTATION: 04/30/2017 REFERRING PHYSICIAN: Torito Medeiros MD REASON FOR CONSULTATION: Bilateral pneumonia. HISTORY OF PRESENTING ILLNESS: This is a 71-year-old gentleman with past medical history of hypertension, diabetes mellitus type 2, history of laryngeal cancer, status post resection, chemoradiation who presents to the hospital from [facility] status post code. The patient was diagnosed with septic shock. He was admitted to the intensive care unit, treated with antibiotics. The patient did fairly well. The patient was transferred to the floor after weaning from mechanical ventilation. He was doing well on the floor. He did have a pleural effusion and subsequently had a tap done by Radiology. The patient did fairly well and then he had increased oxygen requirement. A chest x-ray and a CT scan revealed bilateral atelectasis or possible infiltrates on the right lower lobe. The patient denied any chest pain, pleurisy, hemoptysis, nausea, vomiting, abdominal pain. He feels good except that his shortness of breath has significantly worsened over the past 24-48 hours. PAST MEDICAL HISTORY: Hypertension, diabetes mellitus type 2, history of laryngeal cancer. PAST SURGICAL HISTORY: 1. Port-A-Cath placement. 2. Laryngeal cancer resection. 3. Tracheostomy. FAMILY HISTORY: Mother has history of diabetes mellitus type 2 and from intussusception. 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 MEDICATIONS: Please refer to the MAR. PATIENT'S NAME: TARA SANCHEZ [facility] AGE: 71 Y [address] ROOM: [address] [place] [id number] LOCATION: GPCU ADMIT DATE: 04/16/2017 Consultation DISCHARGE DATE: 05/05/2017 FAMILY PHYSICIAN: Glenn Mccoy MD ATTENDING PHYSICIAN: João Mix REVIEW OF SYSTEMS: A 10-point review of systems was attempted. The patient answered to the best of his ability. Otherwise, negative other than what is mentioned in the history of presenting illness. PHYSICAL EXAMINATION: GENERAL: The patient is lying in bed, comfortable, does not appear in acute distress, although he is on high flow oxygen. VITAL SIGNS: Temperature is 98, respiratory rate is 18, pulse was 83, blood pressure was 125/56, saturating 91% on 60% FiO2. HEENT: Eyes are nonicteric. Pupils are equal, reactive to light and accommodation. HEENT: Normocephalic, atraumatic. Wet mucous membranes. No ear or nasal discharge. NECK: Positive size 6 tracheostomy with no discharge around the trach. There is discharge from the trach, which appears to be nonpurulent. LUNGS: Decreased air entry bilaterally at the bases. HEART: S1, S2. No murmurs, rubs, or gallops appreciated. ABDOMEN: Soft, nontender, no palpable organs. LOWER EXTREMITIES: No edema, clubbing, or cyanosis. SKIN: There are no rashes or lesions noted. MUSCULOSKELETAL: The patient has full range of motion, although he is pretty weak. LABORATORY DATA: At the time of evaluation included white cell count of 10.4, hemoglobin of 13, hematocrit of 45, platelets of 295. His urinalysis was pending. His sodium from 3 days ago was 140, potassium was 3.9, chloride 100, anion gap is 5.9, CO2 is 38, calcium is 5.9, BUN of 16, creatinine of 0.9. IMPRESSION: 1. Hypoxic respiratory failure, most likely secondary to bilateral lower lobe atelectasis secondary to immobility and position. There is a possibility that this is a healthcare-associated pneumonia, but given the fact that the patient has no increased white cell count, and the CT chest does not favor an infiltrate at the current point, I will recommend to proceed with a bronchoscopy with a BAL to rule out any healthcare- associated pneumonia. At the current point, we will do therapeutic suctioning of the bilateral lower lobes for further evaluation. The risks and benefits of the procedure were discussed with the patient. 2. As for the patient's tracheostomy, will be changed by ENT. 3. I do recommend that we continue the current antibiotics until further organism is identified. Thank you for allowing me to participate in the care of this patient. PATIENT'S NAME: TARA SANCHEZ [facility] AGE: 71 Y [address] ROOM: [address] [address] LOCATION: [facility] ADMIT DATE: 04/16/2017 Consultation DISCHARGE DATE: 05/05/2017 FAMILY PHYSICIAN: Glenn Mccoy MD ATTENDING PHYSICIAN: João Mix MD GIDEON MCLEOD/danya /[id number] d: 05/18/17 0035 t: 05/24/17 1708, CONSULTATION REPORT
--- NOTE | ~2017-04-16 | OR ---
PATIENT'S NAME: TARA SANCHEZ [facility] AGE: 71 Y [address] 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 PROCEDURE PERFORMED: 1. Fiberoptic bronchoscopy with therapeutic suctioning of the bilateral lower lobes. 2. Bronchoalveolar lavage of the right lower lobe. CONSENT: Risks and benefits of the procedure were discussed with the patient and his family. They agreed to proceed with the procedure. PROCEDURE IN DETAIL: After the informed consent, proper time-out was called by nursing staff. The patient was put to general anesthesia using his tracheostomy by the Anesthesiology. Please refer to the Anesthesia record. After that, an Olympus bronchoscope was introduced through the tracheobronchial tree, the trach was in good position. There was no obstruction, the visualized portion of the trachea appeared normal with no endobronchial lesions, the yanira was sharp and non-splayed, the right mainstem was patent. There was thick secretion which was suctioned out. The right upper lobe was patent with no endobronchial lesions. There were white creamy secretions which were suctioned out. The right middle lobe was patent. The right bronchus intermedius was patent. The right lower lobe was almost completely occluded with a thick secretion which was suctioned out and then washed out using normal saline. After that, the bronchoscope was taken to the left mainstem. The left mainstem appeared patent. The left upper lobe was patent, but had a lot of secretions which was suctioned out. The left lower lobe was completely occluded by a mucous plug which was suctioned out, then washed with saline, after the initial suctioning and therapeutic suctioning, the bronchoscope was wedged in the left lower lobe. Endobronchial lavage was done using 40 mL of normal saline. A 25 mL were suctioned out which appeared to be purulent. Then, the bronchoscope was withdrawn. The patient tolerated the procedure well and was weaned of the vent and transferred to PACU in stable condition. RECOMMENDATIONS/CONCLUSION: 1. Successful therapeutic bronchoscopy. 2. Bronchoalveolar lavage. PATIENT'S NAME: TARA SANCHEZ [facility] AGE: 71 Y [address] ROOM: [place] [address] LOCATION: GPCU ADMIT DATE: 04/16/2017 OR/Procedure Report DISCHARGE DATE: 05/05/2017 FAMILY PHYSICIAN: Glenn Mccoy MD ATTENDING PHYSICIAN: João Mix 3. Recommend to continue current antibiotic until further identification of microorganism is done. Thank you for allowing to participate in care of this patient. MD GIDEON MCLEOD/danya /[id number] d: 05/17/17 2358 t: 05/24/17 1705, OPERATIVE SUMMARY
--- NOTE | ~2017-04-16 | ENPV ---
Vascular Lower Extremities DVT Study Procedure Demographics Patient Name TARA SANCHEZ Date of Study 04/18/2017 Patient Number [id number] Gender Male Date of 1945 Age 71 Visit Number [id number] Height Accession Number [id number] Weight Room Number G6210 BSA BMI Referring Interpreting Dilshad Maldonado MD Physician Physician Physician Ordering Physician Waldemar Ugarte [employer] Asia Carmona BS, RT Conclusions Summary No evidence of deep vein thrombosis or superficial thrombophlebitis in the lower extremities bilaterally . Procedure Type of Study: Veins:Lower Extremities DVT Study, Lower Extremity Left, Venous Duplex Lower Extremity Bilateral. Indications for Study:Swelling and Swelling of Limb. Patient Status:Routine. Study Location:Inpatient Portable. Technical Quality:Adequate visualization. Velocities are measured in cm/s ; Diameters are measured in cm Right Lower Extremities DVT Study Measurements Right 2D and Doppler Measurements + + + + +------+------+ + !Location !Visualized!Compressibility!Thrombosis!Signal!Reflux!Reflux ! ! ! ! ! ! ! !(sec) ! + + + + +------+------+ + !GSV Thigh !Yes !Yes !None !Phasic!No ! ! + + + + +------+------+ + !Common !Yes !Yes !None !Phasic!No ! ! !Femoral ! ! ! ! ! ! ! + + + + +------+------+ + !Prox !Yes !Yes !None !Phasic!No ! ! !Femoral ! ! ! ! ! ! ! + + + + +------+------+ + !Mid Femoral!Yes !Yes !None !Phasic!No ! ! + + + + +------+------+ + !Dist !Yes !Yes !None !Phasic!No ! ! !Femoral ! ! ! ! ! ! ! + + + + +------+------+ + !Popliteal !Yes !Yes !None !Phasic!No ! ! + + + + +------+------+ + !Gastroc !Yes !Yes !None !Phasic!No ! ! + + + + +------+------+ + !PTV !Yes !Yes !None !Phasic!No ! ! + + + + +------+------+ + !Peroneal !Yes !Yes !None !Phasic!No ! ! + + + + +------+------+ + Left Lower Extremities DVT Study Measurements Left 2D and Doppler Measurements + + + + +------+------+ + !Location !Visualized!Compressibility!Thrombosis!Signal!Reflux!Reflux ! ! ! ! ! ! ! !(sec) ! + + + + +------+------+ + !GSV Thigh !Yes !Yes !None !Phasic!No ! ! + + + + +------+------+ + !Common !Yes !Yes !None !Phasic!No ! ! !Femoral ! ! ! ! ! ! ! + + + + +------+------+ + !Prox !Yes !Yes !None !Phasic!No ! ! !Femoral ! ! ! ! ! ! ! + + + + +------+------+ + !Mid Femoral!Yes !Yes !None !Phasic!No ! ! + + + + +------+------+ + !Dist !Yes !Yes !None !Phasic!No ! ! !Femoral ! ! ! ! ! ! ! + + + + +------+------+ + !Popliteal !Yes !Yes !None !Phasic!No ! ! + + + + +------+------+ + !Gastroc !Yes !Yes !None !Phasic!No ! ! + + + + +------+------+ + !PTV !Yes !Yes !None !Phasic!No ! ! + + + + +------+------+ + !Peroneal !Yes !Yes !None !Phasic!No ! ! + + + + +------+------+ + Signature dtt: CARA CRESPO dtd: 04/18/1714 Physician Self Edit
[2017-04-16 10:01] LABS: HEMATOCRIT 55.6 % (37.0-53.0); HEMOGLOBIN 15.7 g/dL (11.0-16.0); MCH 26.3 pg (27.0-34.0); MCHC 28.2 gm/dL (32.0-36.5); MCV 93.1 fl (83.0-98.0); MPV 10.6 fl (9.4-12.4); PLATELET COUNT 195 K/uL (150-450); RBC 5.97 M/uL (3.50-5.50); RDW-CV 15.5 % (11.9-14.6)
[2017-04-16 10:05] LABS: BICARBONATE 34.8 mmol/L (18.0-23.0); LACTATE 2.4 mEq/L (0.50-1.60)
[2017-04-16 10:10] LABS: PCO2 89 mmHg (35-45)
[2017-04-16 10:11] LABS: PO2 32 mmHg (80-90)
[2017-04-16 10:33] LABS: INR - (THERAPEUTIC) 3.33 (0.92-1.07); PROTIME 35.4 SECONDS (9.8-11.4)
[2017-04-16 10:36] LABS: PTT 136 SECONDS (25-32)
[2017-04-16 10:44] LABS: BANDED NEUTROPHILS % 11 %; LYMPHOCYTE # 0.5 K/uL (0.8-4.0); LYMPHOCYTE % 3 %; MONOCYTE # 1.1 K/uL (0.0-1.0); SEGMENTED NEUTROPHIL % 78 %
[2017-04-16 10:56] LABS: CALCIUM 7.4 mg/dL (8.5-10.5); POTASSIUM 3.8 mMol/L (3.7-5.1)
[2017-04-16 10:57] LABS: ALBUMIN 2.2 gm/dL (3.5-5.0); ANION GAP 12.8 (10.0-19.0); CREATININE 1.1 mg/dL (0.6-1.3); TOTAL BILIRUBIN 0.5 mg/dL (0.0-1.5); TOTAL PROTEIN 5.3 g/dL (6.0-8.4)
[2017-04-16 10:58] LABS: MAGNESIUM 1.5 mg/dL (1.8-2.6)
[2017-04-16 11:45] LABS: PROTIME 14.4 SECONDS (9.8-11.4)
[2017-04-16 11:46] LABS: INR - (THERAPEUTIC) 1.37 (0.92-1.07)
[2017-04-16 11:51] LABS: BILIRUBIN URINE NEGATIVE (NEGATIVE); BLOOD URINE 50 /UL (NEGATIVE); COLOR URINE YELLOW (YELLOW); GLUCOSE URINE NEGATIVE (NEGATIVE); KETONE URINE NEGATIVE (NEGATIVE); LEUKOCYTES URINE NEGATIVE /UL (NEGATIVE); NITRITE URINE NEGATIVE (NEGATIVE); PROTEIN URINE 100 mg/dL (NEGATIVE); TURBIDITY URINE 1+ (CLEAR); UROBILINOGEN URINE NORMAL (NORMAL)
[2017-04-16 12:02] LABS: AMORPHOUS URINE 1+ (NEGATIVE); BACTERIA URINE RARE (NEGATIVE); GRANULAR CASTS URINE 0-2 #/LPF (NEGATIVE); HYALINE CAST URINE 0-2 #/LPF (NEGATIVE); MUCUS URINE 1+ (NEGATIVE)
[2017-04-16 15:55] LABS: PCO2 75 mmHg (35-45); PO2 55 mmHg (80-90)
[2017-04-16] MEDS ORDERED: LEVOTHROID(SYN75 MCG PO (19:58)
[2017-04-16 20:27] LABS: BICARBONATE 31.9 mmol/L (18.0-23.0)
[2017-04-16 20:28] LABS: PCO2 71 mmHg (35-45); PO2 40 mmHg (80-90)
[2017-04-16 22:24] LABS: BICARBONATE 27.6 mmol/L (18.0-23.0); PCO2 60 mmHg (35-45)
[2017-04-16 22:30] LABS: PO2 81 mmHg (80-90)
[2017-04-17 01:01] LABS: BICARBONATE 25.9 mmol/L (18.0-23.0); PCO2 59 mmHg (35-45); PO2 90 mmHg (80-90)
[2017-04-17 04:18] LABS: CREATININE 1.5 mg/dL (0.6-1.3)
[2017-04-17 08:53] LABS: ALBUMIN 1.9 gm/dL (3.5-5.0); ANION GAP 12.3 (10.0-19.0); CALCIUM 7.5 mg/dL (8.5-10.5); CREATININE 1.4 mg/dL (0.6-1.3); POTASSIUM 3.3 mMol/L (3.7-5.1); TOTAL BILIRUBIN 0.6 mg/dL (0.0-1.5)
[2017-04-17 08:57] LABS: BASOPHIL % 0.2 %; HEMATOCRIT 51.9 % (37.0-53.0); HEMOGLOBIN 15.5 g/dL (11.0-16.0); IMMATURE GRANULOCYTE # 0.1 K/uL (0.0-0.3); IMMATURE GRANULOCYTE % 0.5 %; MCH 26.7 pg (27.0-34.0); MCHC 29.9 gm/dL (32.0-36.5); MCV 89.5 fl (83.0-98.0); MONOCYTE % 5.1 %; MPV 11.4 fl (9.4-12.4); NEUTROPHIL # (ANC) 18.2 K/uL (1.4-9.0); NEUTROPHIL % 89.2 %; NRBC % 0.1 /100WBC (0-0.00); PLATELET COUNT 171 K/uL (150-450); RDW-CV 16.8 % (11.9-14.6); WBC 20.4 K/uL (4.0-11.0)
[2017-04-17 12:34] LABS: BICARBONATE 29.1 mmol/L (18.0-23.0); PCO2 48 mmHg (35-45)
[2017-04-17 12:35] LABS: PO2 67 mmHg (80-90)
[2017-04-18 04:06] LABS: BICARBONATE 29.2 mmol/L (18.0-23.0); PCO2 43 mmHg (35-45); PO2 115 mmHg (80-90)
[2017-04-18 06:25] LABS: ALBUMIN 2.7 gm/dL (3.5-5.0); ANION GAP 10.7 (10.0-19.0); CALCIUM 7.5 mg/dL (8.5-10.5); CREATININE 0.9 mg/dL (0.6-1.3); POTASSIUM 2.7 mMol/L (3.7-5.1); TOTAL BILIRUBIN 1.1 mg/dL (0.0-1.5)
[2017-04-18 06:29] LABS: BASOPHIL % 0.1 %; HEMOGLOBIN 11.3 g/dL (11.0-16.0); IMMATURE GRANULOCYTE % 0.4 %; LYMPHOCYTE # 0.7 K/uL (0.8-4.0); LYMPHOCYTE % 5.8 %; MCV 87.1 fl (83.0-98.0); MONOCYTE # 0.6 K/uL (0.0-1.0); MONOCYTE % 5.5 %; MPV 11.7 fl (9.4-12.4); NEUTROPHIL # (ANC) 10.1 K/uL (1.4-9.0); NEUTROPHIL % 88.2 %; NRBC % 0 /100WBC (0-0.00); RDW-CV 15.2 % (11.9-14.6); WBC 11.4 K/uL (4.0-11.0)
[2017-04-18 06:30] LABS: MCH 26.6 pg (27.0-34.0); MCHC 30.5 gm/dL (32.0-36.5); PLATELET COUNT 112 K/uL (150-450); RBC 4.25 M/uL (3.50-5.50)
[2017-04-18] MEDS ORDERED: ECOTRIN325 MG PO (12:03)
[2017-04-18] MEDS ORDERED: LOPRESSOR50 MG PO (12:03)
[2017-04-18 18:48] LABS: ALBUMIN 2.4 gm/dL (3.5-5.0); CALCIUM 7.6 mg/dL (8.5-10.5); CREATININE 0.9 mg/dL (0.6-1.3); MAGNESIUM 2.3 mg/dL (1.8-2.6); TOTAL BILIRUBIN 0.9 mg/dL (0.0-1.5)
[2017-04-18 18:49] LABS: ANION GAP 10.5 (10.0-19.0); TOTAL PROTEIN 4.9 g/dL (6.0-8.4)
[2017-04-18 18:50] LABS: POTASSIUM 3.5 mMol/L (3.7-5.1)
[2017-04-19 04:38] LABS: BASOPHIL % 0.1 %; EOSINOPHIL # 0.1 K/uL (0.0-0.5); EOSINOPHIL % 0.9 %; HEMOGLOBIN 12.9 g/dL (11.0-16.0); IMMATURE GRANULOCYTE # 0.1 K/uL (0.0-0.3); IMMATURE GRANULOCYTE % 0.4 %; LYMPHOCYTE # 0.7 K/uL (0.8-4.0); LYMPHOCYTE % 4.9 %; MCH 27.2 pg (27.0-34.0); MCHC 31.5 gm/dL (32.0-36.5); MCV 86.5 fl (83.0-98.0); MONOCYTE # 0.5 K/uL (0.0-1.0); MONOCYTE % 3.8 %; MPV 11.3 fl (9.4-12.4); NEUTROPHIL # (ANC) 12.9 K/uL (1.4-9.0); NEUTROPHIL % 89.9 %; NRBC % 0 /100WBC (0-0.00); PLATELET COUNT 106 K/uL (150-450); RBC 4.74 M/uL (3.50-5.50); RDW-CV 15.6 % (11.9-14.6); WBC 14.4 K/uL (4.0-11.0)
[2017-04-19 05:05] LABS: ALBUMIN 2.6 gm/dL (3.5-5.0); ANION GAP 10.8 (10.0-19.0); CALCIUM 7.7 mg/dL (8.5-10.5); CREATININE 0.9 mg/dL (0.6-1.3); POTASSIUM 3.8 mMol/L (3.7-5.1); TOTAL BILIRUBIN 0.9 mg/dL (0.0-1.5); TOTAL PROTEIN 5.3 g/dL (6.0-8.4)
[2017-04-20 05:11] LABS: ALBUMIN 2.2 gm/dL (3.5-5.0); ALK PHOS 41 IU/L (33-138); ANION GAP 7.7 (10.0-19.0); AST 10 IU/L (10-40); BLOOD UREA NITROGEN 15 mg/dL (6-24); CALCIUM 7.5 mg/dL (8.5-10.5); CHLORIDE 111 mMol/L (96-110); CO2 28 mMol/L (22-32); CREATININE 0.8 mg/dL (0.6-1.3); POTASSIUM 3.7 mMol/L (3.7-5.1); SODIUM 143 mMol/L (135-145); TOTAL BILIRUBIN 0.9 mg/dL (0.0-1.5)
[2017-04-20 05:13] LABS: ALT < 10 IU/L (12-78); TOTAL PROTEIN 4.9 g/dL (6.0-8.4)
[2017-04-20 05:36] LABS: BASOPHIL % 0.3 %; EOSINOPHIL # 0.3 K/uL (0.0-0.5); EOSINOPHIL % 3.3 %; HEMATOCRIT 39.8 % (37.0-53.0); HEMOGLOBIN 12.4 g/dL (11.0-16.0); IMMATURE GRANULOCYTE % 0.1 %; LYMPHOCYTE # 0.7 K/uL (0.8-4.0); LYMPHOCYTE % 7.9 %; MCHC 31.2 gm/dL (32.0-36.5); MCV 86.5 fl (83.0-98.0); MONOCYTE # 0.6 K/uL (0.0-1.0); MONOCYTE % 6.6 %; MPV 11.4 fl (9.4-12.4); NEUTROPHIL # (ANC) 7.2 K/uL (1.4-9.0); NEUTROPHIL % 81.8 %; NRBC % 0 /100WBC (0-0.00); PLATELET COUNT 117 K/uL (150-450); RDW-CV 15.6 % (11.9-14.6); WBC 8.8 K/uL (4.0-11.0)
[2017-04-21 10:03] LABS: CREATININE 0.8 mg/dL (0.6-1.3)
[2017-04-22 09:37] LABS: CALCIUM 8.2 mg/dL (8.5-10.5); CREATININE 0.9 mg/dL (0.6-1.3)
[2017-04-23 06:30] LABS: ANION GAP 6.5 (10.0-19.0); CALCIUM 8.7 mg/dL (8.5-10.5); CREATININE 0.9 mg/dL (0.6-1.3); POTASSIUM 4.5 mMol/L (3.7-5.1)
[2017-04-24 05:22] LABS: ALBUMIN 2.5 gm/dL (3.5-5.0); ALK PHOS 56 IU/L (33-138); ALT 12 IU/L (12-78); ANION GAP 7.1 (10.0-19.0); AST 11 IU/L (10-40); BLOOD UREA NITROGEN 15 mg/dL (6-24); CALCIUM 8.8 mg/dL (8.5-10.5); CHLORIDE 102 mMol/L (96-110); CO2 36 mMol/L (22-32); CREATININE 0.8 mg/dL (0.6-1.3); POTASSIUM 4.1 mMol/L (3.7-5.1); SODIUM 141 mMol/L (135-145); TOTAL BILIRUBIN 0.5 mg/dL (0.0-1.5)
[2017-04-25 15:20] LABS: HEMATOCRIT 47.2 % (37.0-53.0); HEMOGLOBIN 14.4 g/dL (11.0-16.0); MCH 26.8 pg (27.0-34.0); MCHC 30.5 gm/dL (32.0-36.5); MCV 87.9 fl (83.0-98.0); MPV 10.8 fl (9.4-12.4); RBC 5.37 M/uL (3.50-5.50); RDW-CV 14.7 % (11.9-14.6)
[2017-04-25 15:37] LABS: PROTIME 10.5 SECONDS (9.8-11.4)
[2017-04-26 03:31] LABS: BASOPHIL % 0.4 %; EOSINOPHIL # 0.6 K/uL (0.0-0.5); EOSINOPHIL % 8.6 %; HEMATOCRIT 45.8 % (37.0-53.0); HEMOGLOBIN 13.6 g/dL (11.0-16.0); IMMATURE GRANULOCYTE % 0.3 %; LYMPHOCYTE # 1.1 K/uL (0.8-4.0); LYMPHOCYTE % 16.6 %; MCH 26.1 pg (27.0-34.0); MCHC 29.7 gm/dL (32.0-36.5); MCV 87.7 fl (83.0-98.0); MONOCYTE # 0.7 K/uL (0.0-1.0); MONOCYTE % 10.4 %; MPV 10.2 fl (9.4-12.4); NEUTROPHIL # (ANC) 4.3 K/uL (1.4-9.0); NEUTROPHIL % 63.7 %; NRBC % 0 /100WBC (0-0.00); PLATELET COUNT 255 K/uL (150-450); RBC 5.22 M/uL (3.50-5.50); RDW-CV 14.6 % (11.9-14.6); WBC 6.7 K/uL (4.0-11.0)
[2017-04-26 03:45] LABS: ALBUMIN 2.8 gm/dL (3.5-5.0); ANION GAP 8.7 (10.0-19.0); BLOOD UREA NITROGEN 16 mg/dL (6-24); CALCIUM 8.9 mg/dL (8.5-10.5); CHLORIDE 100 mMol/L (96-110); CO2 33 mMol/L (22-32); CREATININE 0.8 mg/dL (0.6-1.3); MAGNESIUM 2.4 mg/dL (1.8-2.6); POTASSIUM 3.7 mMol/L (3.7-5.1); SODIUM 138 mMol/L (135-145)
[2017-04-27 12:34] LABS: ANION GAP 5.9 (10.0-19.0); CREATININE 0.9 mg/dL (0.6-1.3); MAGNESIUM 2.5 mg/dL (1.8-2.6); PHOSPHORUS 2.9 mg/dL (2.5-4.9); POTASSIUM 3.9 mMol/L (3.7-5.1)
[2017-04-28 04:10] LABS: BASOPHIL # 0.1 K/uL (0.0-0.2); BASOPHIL % 0.6 %; EOSINOPHIL # 0.6 K/uL (0.0-0.5); EOSINOPHIL % 6.8 %; HEMATOCRIT 46.5 % (37.0-53.0); IMMATURE GRANULOCYTE % 0.2 %; LYMPHOCYTE # 0.9 K/uL (0.8-4.0); LYMPHOCYTE % 10.6 %; MCH 26.7 pg (27.0-34.0); MCHC 30.1 gm/dL (32.0-36.5); MCV 88.7 fl (83.0-98.0); MONOCYTE # 0.8 K/uL (0.0-1.0); MONOCYTE % 8.5 %; MPV 10.2 fl (9.4-12.4); NEUTROPHIL # (ANC) 6.5 K/uL (1.4-9.0); NEUTROPHIL % 73.3 %; NRBC % 0 /100WBC (0-0.00); PLATELET COUNT 279 K/uL (150-450); RBC 5.24 M/uL (3.50-5.50); RDW-CV 14.3 % (11.9-14.6); WBC 8.9 K/uL (4.0-11.0)
[2017-04-28 04:23] LABS: ALBUMIN 2.8 gm/dL (3.5-5.0); BLOOD UREA NITROGEN 15 mg/dL (6-24); CALCIUM 8.8 mg/dL (8.5-10.5); CHLORIDE 100 mMol/L (96-110); CO2 36 mMol/L (22-32); CREATININE 0.8 mg/dL (0.6-1.3); MAGNESIUM 2.4 mg/dL (1.8-2.6); PHOSPHORUS 3.2 mg/dL (2.5-4.9); SODIUM 140 mMol/L (135-145)
[2017-04-29 05:07] LABS: ALBUMIN 2.9 gm/dL (3.5-5.0); ANION GAP 5.8 (10.0-19.0); CALCIUM 8.8 mg/dL (8.5-10.5); CREATININE 0.9 mg/dL (0.6-1.3); MAGNESIUM 2.3 mg/dL (1.8-2.6); PHOSPHORUS 2.3 mg/dL (2.5-4.9); POTASSIUM 3.8 mMol/L (3.7-5.1)
[2017-04-30 05:48] LABS: HEMATOCRIT 45.1 % (37.0-53.0); HEMOGLOBIN 13.6 g/dL (11.0-16.0); MCH 26.6 pg (27.0-34.0); MCHC 30.2 gm/dL (32.0-36.5); MCV 88.1 fl (83.0-98.0); MPV 10.8 fl (9.4-12.4); PLATELET COUNT 295 K/uL (150-450); RBC 5.12 M/uL (3.50-5.50); RDW-CV 14.1 % (11.9-14.6); WBC 10.4 K/uL (4.0-11.0)
[2017-04-30 06:21] LABS: ABSOLUTE NEUTROPHIL CT (ANC) 8.4 K/uL (1.4-9.0); LYMPHOCYTE # 1.1 K/uL (0.8-4.0); LYMPHOCYTE % 11 %; MONOCYTE # 0.2 K/uL (0.0-1.0); SEGMENTED NEUTROPHIL # 8.4 K/uL (1.4-9.0); SEGMENTED NEUTROPHIL % 81 %
[2017-05-02 03:26] LABS: HEMATOCRIT 44.7 % (37.0-53.0); HEMOGLOBIN 13.3 g/dL (11.0-16.0); MCH 26.3 pg (27.0-34.0); MCHC 29.8 gm/dL (32.0-36.5); MCV 88.3 fl (83.0-98.0); MPV 10.6 fl (9.4-12.4); PLATELET COUNT 320 K/uL (150-450); RBC 5.06 M/uL (3.50-5.50); RDW-CV 14.3 % (11.9-14.6); WBC 8.9 K/uL (4.0-11.0)
[2017-05-02 03:40] LABS: ALBUMIN 2.7 gm/dL (3.5-5.0); ANION GAP 8.1 (10.0-19.0); CALCIUM 8.8 mg/dL (8.5-10.5); CREATININE 0.9 mg/dL (0.6-1.3); PHOSPHORUS 2.2 mg/dL (2.5-4.9)
[2017-05-02 03:45] LABS: POTASSIUM 4.1 mMol/L (3.7-5.1)
[2017-05-02 05:14] LABS: ABSOLUTE NEUTROPHIL CT (ANC) 6.2 K/uL (1.4-9.0); LYMPHOCYTE # 1.2 K/uL (0.8-4.0); LYMPHOCYTE % 13 %; MONOCYTE # 0.6 K/uL (0.0-1.0); SEGMENTED NEUTROPHIL # 6.2 K/uL (1.4-9.0); SEGMENTED NEUTROPHIL % 70 %
== END 2017-05-05 10:10 | DRG 4 ==
LOC: GMED 09:23 → GPCU 11:28 → GNTU 11:28 → GICU 11:28 → GPCU 04-23 12:40
PROVIDERS: Family Medicine; Internal Medicine; Internal Medicine Critical Care Medicine; Internal Medicine Interventional Cardiology; Physician Assistant; Surgery; ADMIT Internal Medicine
DX: A41.9 Sepsis, unspecified organism (principal); R65.21 Severe sepsis with septic shock; J69.0 Pneumonitis due to inhalation of food and vomit; I50.33 Acute on chronic diastolic (congestive) heart failure; E44.0 Moderate protein-calorie malnutrition; I24.8 Other forms of acute ischemic heart disease; E83.42 Hypomagnesemia; J96.01 Acute respiratory failure with hypoxia; J96.02 Acute respiratory failure with hypercapnia; R13.10 Dysphagia, unspecified; E87.6 Hypokalemia; I27.2 Other secondary pulmonary hypertension; I27.81 Cor pulmonale (chronic); I35.1 Nonrheumatic aortic (valve) insufficiency; K43.9 Ventral hernia without obstruction or gangrene; B96.1 Klebsiella pneumoniae [K. pneumoniae] as the cause of diseases classified elsewhere; I11.0 Hypertensive heart disease with heart failure; F32.9 Major depressive disorder, single episode, unspecified; E11.9 Type 2 diabetes mellitus without complications; R63.4 Abnormal weight loss; E03.9 Hypothyroidism, unspecified; J44.9 Chronic obstructive pulmonary disease, unspecified; Z79.82 Long term (current) use of aspirin; Z86.12 Personal history of poliomyelitis; Z82.49 Family history of ischemic heart disease and other diseases of the circulatory system; Z87.891 Personal history of nicotine dependence; Z85.21 Personal history of malignant neoplasm of larynx
CPT/HCPCS: C1751; C9113; G8996; G8997; G8998; J0696; J1160; J1250; J1265; J1650; J1940; J1956; J2370; J2543; J3010; J3370; J3475; J3480; J7030; J7040; J7050; J7060; J7120; P9045; P9047; Q9967

== ENCOUNTER → 2017-04-16 | Outpatient (CLI) | payer MEDICARE, OTHER | END | disposition disaster alternative care site (69) | LOC: GAIR 09:11 | DX: I46.9 Cardiac arrest, cause unspecified (principal) | CPT/HCPCS: A0422; A0431; A0436; J7030 ==